=== PATIENT | female | born 1985 | race Caucasian/White ===

== ENCOUNTER 2024-02-12 09:02 | Outpatient (CLI) | payer OTHER, SELFPAY | END 2024-02-12 09:03 | disposition home or self-care (01) | LOC: ANHBWCAUD 09:02 | PROVIDERS: PCP Physician Assistant; Visit Provider Otolaryngology | DX: H69.93 Unspecified Eustachian tube disorder, bilateral (principal) | CPT/HCPCS: 92557; 92567 ==